=== PATIENT | male | born 1975 | race Caucasian/White ===

== ENCOUNTER 2017-06-23 17:13 | Emergency (ER) | payer MEDICAID, OTHER ==
[~2017-06-23] VITALS: Ht 175.3 cm; Wt 75.6 kg
[2017-06-23 18:03] VITALS: Ht 175.3 cm; Wt 75.6 kg
[2017-06-23] MEDS ORDERED: HYDROCODONE/APAP (10/325) TAB PO ONE (21:00)
[2017-06-23] MEDS ORDERED: AMOXICILLIN/CLAV 875 MG TAB PO ONE (21:00)
--- NOTE | 2017-06-23 21:43 | ERD ---
ER Documentation Chief Complaint Chief Complaint left side dental pain/swelling x 2 days HPI This 41-year-old male patient presents to emergency department with tooth pain 2 days, pain is located left upper mandible, denies injury, or broken teeth, fever or chills. Patient reports pain with chewing, having difficulty sleeping secondary to the pain. Patient has not seen a dentist recently. ROS All systems reviewed and are negative except as per history of present illness. Medications Home Meds Active Scripts Ibuprofen* (Motrin*) 800 Mg Tab, 800 MG PO Q6, #30 TAB Prov:PETER,DEBBIE 06/23/17 Hydrocodone/Acetaminophen (Crossett 10-325 Tablet) 1 Each Tablet, 1 TAB PO Q6H Y for PAIN, #7 TAB Prov:PETER,DEBBIE 06/23/17 Amoxicillin/Potassium Clav (Amox-Clav 875-125 mg Tablet) 875-125 mg Tab, 1 TAB PO BID for 10 Days, #20 TAB Prov:PETER,DEBBIE 06/23/17 Allergies Allergies: Coded Allergies: No Known Allergy (Unverified , 06/23/17) PMhx/Soc Medical and Surgical Hx: pt denies Medical Hx, pt denies Surgical Hx Hx Alcohol Use: No Hx Substance Use: No Hx Tobacco Use: No Smoking Status: Never smoker Physical Exam Vitals Vital Signs Date Time Temp Pulse Resp B/P Pulse Ox O2 Delivery O2 Flow Rate FiO2 06/23/17 18:03 98.3 89 19 145/77 98 Vitals stable, triage notes reviewed Physical Exam Const: Well-nourished, well-hydrated, well-appearing 41-year-old male patient in obvious discomfort no acute distress Head: Atraumatic Eyes: Normal Conjunctiva ENT: Normal External Ears, Nose and mouth is symmetric, no lip edema lesion or ulcer, tongue is midline, moist, left maxillary third molar tender, appears to be out of alignment with rest of teeth. Neck: Full range of motion..~ No meningismus. Neur: Awake and alert Psych: Normal Mood and Affect Results 24 hrs Current Medications Medications (Trade) Dose Ordered Sig/Manisha Route PRN Reason Start Time Stop Time Status Last Admin Dose Admin Amoxicillin/ Clavulanate Potassium (Augmentin) 875 mg ONCE ONCE PO 06/23/17 21:00 06/23/17 21:44 DC Acetaminophen/ Hydrocodone Bitart (Crossett (10/325)) 1 tab ONCE ONCE PO 06/23/17 21:00 06/23/17 21:44 DC Procedures/MDM This 41-year-old male patient brought into emergency department by for evaluation of left upper mandibular tooth pain, pain is throbbing, constant, keeping him up at night, patient reports difficulty chewing, reports that tooth is not sensitive to hot or cold. Emergency room course includes history and physical exam, physical exam findings show a third molar possible impaction, misalignment with other teeth. There is no avulsion or subluxation, no difficulty swallowing, breathing, or opening mouth. Patient is diagnosed with dental pain, suspected impacted wisdom teeth, started on Augmentin 875 1 tab p.o. twice daily 10 days, and Crossett 10 given 1. Plan to discharge patient home with Augmentin 875 1 tab p.o. twice daily 10 days, ibuprofen 800 mg 1 tab p.o. every 8 hours as needed, pain less than 5 out of 10 on pain scale, Crossett 10 /325, 1 tab p.o. every 6 hours as needed pain greater than 6/10 on pain scale. Increase fluids, follow-up with dentist, patient has not seen a dentist in years , he was given community dental information. Return to emergency department for difficulty opening mouth, swallowing, or pain not controlled with treatment. Patient is stable with no new complaints during ER course, clinically there is no current evidence to suggest Jorge's angina, dry socket, gingivitis, acute necrotizing ulcerative gingivitis, sialolithiasis or any other emergent condition appearing to require further evaluation or hospitalization. I feel the patient is stable for discharge at this time. I have discussed results, examination findings, the treatment plan with the patient and family present prior to discharge. Indications for emergent reevaluation, side effects of medication were also discussed. All questions were answered. Patient verbalizes understanding and agrees with plan of care. Departure Diagnosis: Primary Impression: Pain, dental Condition: Good Patient Instructions: Understanding Impacted Wheeler Teeth, Understanding Wheeler Teeth, Wheeler Teeth: Your Treatment Plan Additional Instructions: Thank you for for coming to [facility] for your care today. Please ask your nurse or provider if you have questions about your care today and do not leave until all your questions have been answered. Please use any medications given as directed and follow-up with your doctor (or the doctor you were referred to) in the next 2-3 days. If you do not have a primary care doctor you may follow up at the [facility] (listed below). You may also use motrin and tylenol as needed for fever and/or pain unless instructed otherwise by your provider or nurse. Indications for more urgent follow-up have been discussed, but you may return to the Emergency Department at ANY time for any worrisome or worsening symptoms. If you have abdominal pain, please know that no test or exam you received is perfect and you should follow up within 8 hours for continued pain. If you had any imaging studies today, such as an X-Ray or CT Scan, these studies will be reviewed later by a radiologist. You will be called if there are important findings that were not identified today, so make sure the contact information you provided at registration is correct. If you received any narcotic pain control medicine today, such as Vicodin, Morphine or Dilaudid, your coordination and judgment may be affected for a number of hours. Please do not drive or operate heavy machinery, and you may want someone to assist you at home. If you were given a prescription for narcotic medication, be aware that it is very addictive- use sparingly and only if necessary. DEBBIE GREEN Jun 23, 2017 21:43
[2017-06-23] MEDS ORDERED: IBUP800T25 PO (21:44)
[2017-06-23] MEDS ORDERED: AMOX1TAB10 PO (21:44)
[2017-06-23] MEDS ORDERED: HYDR-902 PO (21:44)
== END 2017-06-23 22:07 | disposition home or self-care (01) ==
LOC: FTE 17:13
DX: K08.89 Other specified disorders of teeth and supporting structures (principal)
CPT/HCPCS: Z7502; Z7610; 99284

== ENCOUNTER 2018-07-31 14:11 | Emergency (ER) | payer SELFPAY ==
[~2018-07-31] VITALS: Ht 177.8 cm; Wt 80.0 kg
[~2018-07-31 14:11] MED LIST: AMOX1TAB10 PO; HYDR-3980 PO; IBUP800T48 PO
[2018-07-31 14:17] VITALS: BP 128/64; PULSE 87; RESP 16; Ht 177.8 cm; Wt 80.0 kg
[2018-07-31] MEDS ORDERED: KETOROLAC 60 MG INJ IM STA (14:44)
[2018-07-31] MEDS ORDERED: TRAM50TA2 PO (14:48)
[2018-07-31] MEDS ORDERED: IBUP-1542 PO (14:48)
--- NOTE | 2018-07-31 14:50 | ERD ---
ER Documentation Chief Complaint Chief Complaint pt is with family c/o back pain for a few days, ambultory, pain to sit HPI This 42-year-old male presents with sudden onset left-sided low back pain since yesterday after picking up a toddler. He has radiation to his buttocks but no further. Denies any bowel or bladder incontinence, urinary complaints, hematuria, fevers. Denies history of low back problems. ROS All systems reviewed and are negative except as per history of present illness. Medications Home Meds Active Scripts Tramadol HCl (Tramadol HCl) 50 Mg Tablet, 50 MG PO Q4 PRN for PAIN, #15 TAB Prov:MEAGAN KEITA MD 07/31/18 Ibuprofen* (Motrin*) 600 Mg Tab, 600 MG PO Q6, #20 TAB Prov:MEAGAN KEITA MD 07/31/18 Ibuprofen* (Motrin*) 800 Mg Tab, 800 MG PO Q6, #30 TAB Prov:PETER,DEBBIE 06/23/17 Hydrocodone/Acetaminophen (Burt 10-325 Tablet) 1 Each Tablet, 1 TAB PO Q6H PRN for PAIN, #7 TAB Prov:PETER,DEBBIE 06/23/17 Amoxicillin/Potassium Clav (Amox-Clav 875-125 mg Tablet) 875-125 mg Tab, 1 TAB PO BID for 10 Days, #20 TAB Prov:PETER,DEBBIE 06/23/17 Allergies Allergies: Coded Allergies: No Known Allergy (Unverified , 06/23/17) PMhx/Soc Hx Alcohol Use: No Hx Substance Use: No Hx Tobacco Use: No Smoking Status: Never smoker FmHx Family History: No diabetes, No coronary disease, No other Physical Exam Vitals Vital Signs Date Temp Pulse Resp B/P (MAP) Pulse Ox O2 O2 Flow FiO2 Time Delivery Rate 07/31/18 98.3 87 16 128/64 98 14:17 (85) Physical Exam Const: No acute distress Head: Atraumatic Eyes: Normal Conjunctiva ENT: Normal External Ears, Nose and Mouth. Neck: Full range of motion. No meningismus. Resp: Clear to auscultation bilaterally Cardio: Regular rate and rhythm, no murmurs Abd: Soft, non tender, non distended. Normal bowel sounds Skin: No petechiae or rashes Back: No midline or flank tenderness. Tenderness left L4-5 paraspinous area. Mildly positive straight leg raise. No midline tenderness or deformities. Ext: No cyanosis, or edema Neur: Awake and alert Psych: Normal Mood and Affect Results 24 hrs Current Medications Medications Dose Sig/Manisha Start Time Status Last (Trade) Ordered Route PRN Stop Time Admin Dose Reason Admin Ketorolac 60 mg ONCE STAT 07/31/18 DC Tromethamine IM 14:44 (Toradol) 07/31/18 14:45 1 tab ONCE ONCE 07/31/18 Acetaminophen PO 15:00 / 07/31/18 15:01 Hydrocodone Bitart (Burt (5/325)) Procedures/MDM Patient presents with nontraumatic left-sided low back pain consistent with lumbar strain. Doubt cauda equina, epidural abscess, and no evidence of neurologic deficit, signs or symptoms of genitourinary etiology, bacterial inf ection. Patient was given Toradol 60 mg IM and Burt 5 mg by mouth. Will treat with ibuprofen, tramadol, instructions for exercises, stretching, primary care follow-up and return precautions. The patient was stable with no new complaints during the ER course. Clinically, there is no current evidence to suggest meningitis, sepsis, acute abdomen, pneumonia, stroke, acute coronary syndrome, pulmonary embolism, aortic dissection or any other emergent condition appearing to require further evaluation or hospitalization. Patient counseled regarding my diagnostic impression and care plan. Prior to discharge all questions answered. Pt agrees with treatment plan and understands strict return precautions. Pt is instructed to follow up with primary care provider within 24- 48 hours. Precautionary instructions provided including instructions to return to the ER if not improving or for any worsening or changing symptoms or concerns. Departure Diagnosis: Primary Impression: Back pain Back pain location: low back pain Chronicity: acute Back pain laterality: left Sciatica presence: without sciatica Qualified Codes: M54.5 - Low back pain Condition: Stable Patient Instructions: Back Exercises, Lumbar, Back Pain (Acute Or Chronic) Referrals: NO PRIMARY,CARE PHYSICIAN (PCP) Additional Instructions: Recommend stretching and exercises at home. Recheck for any worsening symptoms with primary care doctor. MEAGAN KEITA MD Jul 31, 2018 14:50
[2018-07-31] MEDS ORDERED: HYDROCODONE/APAP (5/325) TAB PO ONE (15:00)
== END 2018-07-31 15:02 | disposition home or self-care (01) ==
LOC: FTE 14:11
DX: M54.5 Low back pain (principal)
CPT/HCPCS: 96372; 99284; J1885